=== PATIENT | female | born 1975 | race Caucasian/White ===

== ENCOUNTER → 2016-12-08 | Outpatient (CLI) | payer OTHER | LOC: FIMAGING 12:55 | PROVIDERS: ATTEND Obstetrics & Gynecology | DX: O09.521 Supervision of elderly multigravida, first trimester (principal); O09.811 Supervision of pregnancy resulting from assisted reproductive technology, first trimester; O20.8 Other hemorrhage in early pregnancy; Z3A.12 12 weeks gestation of pregnancy ==

== ENCOUNTER → 2017-01-29 | Outpatient (CLI) | payer OTHER | LOC: FIMAGING 12:01 | PROVIDERS: ATTEND Obstetrics & Gynecology | DX: O09.522 Supervision of elderly multigravida, second trimester (principal); O09.812 Supervision of pregnancy resulting from assisted reproductive technology, second trimester; Z3A.19 19 weeks gestation of pregnancy ==

== ENCOUNTER 2017-02-16 12:45 | Observation (INO) | payer OTHER ==
--- NOTE | 2017-02-16 14:55 | GHP ---
[f rep st] HISTORY AND PHYSICAL DATE OF ADMISSION: 02/16/2017 ADMISSION DIAGNOSIS: Intrauterine at 22-1/7 weeks gestation and cramping. HISTORY OF PRESENT ILLNESS: The patient is a 41-year-old, 2, para 0-1-0-0, who is at 22-1/7 weeks gestation. She has been receiving care at the [facility]. 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 This has been uncomplicat ed. The patient is anxious with this due to the history of her previous outcome. She stat ed last night she began having short stabbing pains that lasted 2 seconds in her abdomen every 5 annmarie hardy. She hydrated well, and these went away until the morning, where she started having pain every 2 minutes that lasted approximately 2 seconds. She states there is positive movement. She manolo es any vaginal bleeding. She denies any loss of fluid. She denies any back pain. She denies any he adache, changes in vision, nausea or vomiting. Speculum exam was performed, which showed the cervix was visually long and closed. An Affirm culture was collected. A sterile vaginal exam was performed , and her cervix was long, closed and thick. A urine culture and urinalysis were sent. PHYSICAL EXAMINATION: VITAL SIGNS: Stable. GENERAL APPEARANCE: Anxious, but alert and oriented x3 . PSYCHIATRIC: She has appropriate affect, and as previously stated, is anxious. MUSCULOSKELETAL: Grossly intact. NEUROLOGIC: Grossly intact. NECK: Mobile and supple. HEART: Rate is regular, r egular. LUNGS: Clear to auscultation bilaterally. ABDOMEN: Gravid, nondistended, nontender. EXTR EMITIES: No calf tenderness or edema. PELVIC: Cervix is long, closed and high. The infant's heart tracing is appropriate for gestational age, and she is potentially having mild yovani rine irritability. We will send down the Affirm and the urine culture. I had a long discussion with the patient about labor versus her anxiety over her previous loss and normal body changes in . The patient is very reassured and relieved that her cervix is long and closed and would like to go home now. ASSESSMENT AND PLAN: A 41-year-old, 2, para 0-1-0-0, who is 22-1/7 weeks gestation, receivin g care at the [facility]. We sent the urine culture and the Affirm culture. P reterm precautions were reviewed extensively with the patient. It was recommended that the patient d rink 3 L of water a day and follow up with us if any persistent pain happens or contractions increase in frequency and intensity. Patient's questions were answered, and patient would like to go home at this time. /[id number]/MODL
== END 2017-02-16 19:54 | disposition home or self-care (01) ==
LOC: FLD 12:45
PROVIDERS: ADMIT Advanced Practice Midwife; ATTEND Advanced Practice Midwife
DX: O09.522 Supervision of elderly multigravida, second trimester (principal); Z3A.22 22 weeks gestation of pregnancy; O26.892 Other specified pregnancy related conditions, second trimester; R10.9 Unspecified abdominal pain
CPT/HCPCS: G0378 ×2

== ENCOUNTER → 2017-02-24 | Outpatient (CLI) | payer OTHER | LOC: FIMAGING 09:18 | PROVIDERS: ATTEND Advanced Practice Midwife | DX: O09.522 Supervision of elderly multigravida, second trimester (principal); O09.812 Supervision of pregnancy resulting from assisted reproductive technology, second trimester; Z3A.23 23 weeks gestation of pregnancy ==

== ENCOUNTER → 2017-04-21 | Outpatient (CLI) | payer OTHER | LOC: FIMAGING 14:06 | PROVIDERS: ATTEND Advanced Practice Midwife | DX: O09.513 Supervision of elderly primigravida, third trimester (principal); O09.813 Supervision of pregnancy resulting from assisted reproductive technology, third trimester; Z3A.31 31 weeks gestation of pregnancy ==

== ENCOUNTER 2017-05-27 20:02 | Inpatient (IN) | payer OTHER ==
[2017-05-27] MEDS ORDERED: EPSOM SALT 454 GM TP PRN (20:30)
[2017-05-27] MEDS ORDERED: OLIVE OIL 118 ML BTL MISC PRN (20:30)
[2017-05-27] MEDS ORDERED: MISOPROSTOL 200 MCG TAB PR PRN (20:30)
[2017-05-27] MEDS ORDERED: TERBUTALINE SULFATE 1 MG/ML VIAL IV PRN (20:30)
[2017-05-27] MEDS ORDERED: LR 1,000 ML IV PRN (20:30)
[2017-05-27 20:41] LABS: PLATELET COUNT 216 10^3/uL (150-400)
[2017-05-27] MEDS ORDERED: BETAMETHASONE IM SYRINGE IM ONE (21:28)
--- NOTE | 2017-05-27 21:52 | CPEKG ---
Heart Rate: 62 RR Interval: 968 P-R Interval: 148 QRSD Interval: 78 QT Interval: 408 QTC Interval: 415 P [place]: 45 QRS [place]: 87 T Wave [place]: 47 EKG Severity - NORMAL ECG - EKG Impression: SINUS RHYTHM Electronically Signed By: Narendra Huang 28-May-2017 07:24:24
[2017-05-27 22:13] LABS: PLATELET COUNT 196 10^3/uL (150-400)
--- NOTE | 2017-05-27 23:31 | OBPROG ---
Labor Progress Note Assessment/Plan: Assessment: IUP at 36w1d with vaginal bleeding - early labor, near syncopal event at home - vaginal bleeding - heavy bloody show BOWI, GBS neg carrier for Lesch Nylan syndrome - baby with 50% chance of carrier status. torticolis, elev uric acid Plan: Pt will try to rest, requests tub bath 05/27/17 23:27 Subjective/Intrapartum Course: 05/27/17 23:30 Pt doing ok - states ctxns mild. anxious about bleeding Objective: 05/27/17 22:00 05/27/17 22:00 Patient ABO/Rh A POSITIVE 05/27/17 20:40 Uric Acid 7.5 mg/dL (2.5-6.8) H 05/27/17 20:30 Total Bilirubin 0.7 mg/dL (0.1-1.4) 05/27/17 22:00 Conjugated Bilirubin 0.2 mg/dL (0.0-0.5) 05/27/17 20:30 Unconjugated Bilirubin 0.6 mg/dL (0.0-1.1) 05/27/17 20:30 AST 35 IU/L (14-46) 05/27/17 22:00 ALT 40 IU/L (9-52) 05/27/17 22:00 Lactate Dehydrogenase 511 IU/L (313-618) 05/27/17 20:30 - SVE Dilation (cm): 4 Effacement (%): 80 Station: -1 Membranes: Intact - Contraction Pattern Assessment Current Contraction Pattern: Regular (q 2-3 min) - FHR Assessment Blount FHR (bpm): 120 FHR Pattern Variability: Moderate FHR Category: 1 Oxytocin Orders Assessment - Pre-Induction/Augmentation Assessment Gestational Age: 36 week(s) and 3 day(s) ICD10 Worksheet Patient Problems: Problems Problem Status Onset Vaginal bleeding Acute - ICD10 Problem Qualifiers (1) Vaginal bleeding
--- NOTE | 2017-05-28 00:06 | GHP ---
[f rep st] HISTORY AND PHYSICAL DATE OF ADMISSION: 05/27/2017 HISTORY OF PRESENT ILLNESS: The patient is a 42-year-old G3, P0-1-1-0, at 36 weeks and 3 days, with an estimated due date of 06/21/2017, who presents by ambulance with acute onset of vaginal bleeding a fter near syncopal events at home. The patient reports approximately 45 minutes prior to arrival she was sitting at her dinner table having dinner and felt acute onset of nausea and lightheadedness, an d felt acute onset of bleeding. The patient felt she passed a couple of large blood clots and this w as confirmed by the ambulance staff when they picked her up. The patient's clothing was saturated wi th blood upon arrival. The patient felt she was seeing stars and about to pass out. She had hydrate d approximately 2 to 2.5 L of water throughout the day. Patient was not able to assess if she was ray ving movement. Did not feel that she had rupture of membranes, but was continuously having a l ittle bit of leakage that she felt was blood. CARE: The patient has been followed recently by [facility] after transfer from [facility] earlier in . The patient had put the call into the [facility] er and talked to Morris who recommended calling the ambulance and presenting to Labor and Delivery. The patient's has been under increased surveillance due to her advanced maternal age, and t he fact that the was conception through IVF. The patient had an echo approximately 22 week s, which showed normal cardiac findings. The patient also had a 3rd trimester ultrasound with matern al specialist for evaluation of growth due to advanced age. Estimated weight was the 27t h percentile at 30+ weeks. There was a posterior placenta with no evidence of previa and good fluid on that ultrasound. The patient was initiating twice weekly NSTs and just had her first 1 earlier to day, which was a category 1 tracing. 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 The couple had pre-i mplantation genetic testing for aneuploidy, however, chose to implant a female for elimination of ris k of an affected child. The patient did not do specific testing for Lesch-Nyhan syndrome due to the expense. LABS: Include maternal blood type A positive with negative antibody screen. RPR nonreactiv e. HIV nonreactive. Hepatitis B surface antigen nonreactive. Rubella immune. Hepatitis C nonreact lj. Gonorrhea and chlamydia negative. TSH testing at the end of April was normal. Cystic fibros is, SMA, fragile X all negative. 1-hour Glucola was normal. Hematocrit levels have been normal in t he . GBS culture was negative. 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 The has been tested and is negative. History of torticollis. Michael's thyroiditis. PAST SURGICAL HISTORY: Negative. PAST OBSTETRIC HISTORY: The patient has had a first-trimester termination of . The patient also had an elective termination of at 23 weeks' gestation after her son was identified to have Lesch-Nyhan syndrome and felt to be incompatible with survival. This was in January 2014. CURRENT MEDICATIONS: vitamins, Synthroid 100 mcg a day, various supplements. Klonopin 0.5 mg tablet, taking a quarter of a tablet 3 times a day. ALLERGIES: Bactrim, sulfa. PHYSICAL EXAMINATION: GENERAL: Upon admission, the patient is a petite female in no physical distre ss upon admission, but very anxious due to the vaginal bleeding and tearful when hearing the he art tones. The patient's initial blood pressures were 140s over 90s. However, with repeat as the pa tient's anxiety is slowly decreased, is now more typically 130s over 70s. Patient is afebrile. See nursing documentation for full details. heart tone monitoring shows category 1 tracing with ba jacquieine in the 120s with good variability and accelerations. No decelerations noted. Contractions ray ve been occurring every 2-4 minutes with increasing intensity. Vaginal exam showed the cervix 3-4 cm dilated, 80% effaced, at -1 station. Bag of water was intact. Vertex presentation. EXTREMITIES: Nontender, no edema. DIAGNOSTIC STUDIES: A bedside ultrasound was performed. Vertex presentation. Good pockets of amnio tic fluid in the right upper quadrant. Placenta appears to be low and anterior but not previa. No o bvious signs of abruption. EKG testing was normal sinus rhythm. Initial lab testing was performed. Initial hematocrit 36%, platelets 196,000. PIH labs were perform ed. Sodium is low at 129, BUN and creatinine are normal. Liver function tests are normal except uri c acid 7.5. Due to these unexpected abnormal values, labs were repeated approximately an hour later. Repeat on the sodium was 132. ASSESSMENT: Intrauterine at 36 weeks and 3 days, acute onset of vaginal bleeding which neva ears consistent with heavy bloody show with early labor. No obvious sign of abruption, and the patie nt is having contractions with increasing intensity and cervical change. Over time, evaluation on [place] and Delivery, the bleeding has decreased dramatically. 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 Patient is aware of 50% potential risk of the baby being a carrier for the same disorder. History of Michael' s, stable on levothyroxine. PLAN: We will continue to watch the bleeding carefully and will allow continued labor trial as long as the baby stays in category 1. JOB ANALYST will be aware of the genetic issues. Betamethasone was given t o the patient for lung maturity. /[id number]/MODL
[2017-05-28] MEDS ORDERED: AMMONIA AROMATIC 1 EACH AMP IH ONE (04:08)
[2017-05-28] MEDS ORDERED: LIDOCAINE 1% 300 MG/30 ML SDV ONE (04:08)
[2017-05-28] MEDS ORDERED: TERBUTALINE SULFATE 1 MG/ML VIAL ONE (04:08)
[2017-05-28] MEDS ORDERED: OLIVE OIL 118 ML BTL ONE (04:08)
[2017-05-28] MEDS ORDERED: OXYTOCIN 10 UNIT/ML VIAL ONE (04:09)
[2017-05-28] MEDS ORDERED: BETAMETHASONE IM SYRINGE IM ONE (09:02)
--- NOTE | 2017-05-28 13:55 | SOAPPROG ---
SOAP Progress Note Assessment/Plan: Assessment: [id number] with IUP@36-4wks Vaginal bleeding threatened PTL GBS Negative cat 1 FHR tracing Plan: expectant management steroids given monitor closely cont EFM 05/28/17 17:08 Subjective: Pt doing well, she does report having minimal bleeding. denies any clots. She is having contractions that she is reporting 4/10. She is ambulating with no problems. She reports +FM. Denies any LOF. Objective: Laboratory Results 05/27/17 22:00 05/27/17 22:00 SVE 5/60/-2, BBOW - Pending Discharge Pending Discharge Within 24 Hours: No Pending Discharge Within 48 Hours: No Physical Exam - Physical Exam General Appearance: WD/WN, alert, no apparent distress Neck: supple Abdomen: non-tender, soft, other (gravid) Extremities: non-tender Neuro/Psych: alert, normal mood/affect, oriented x 3 ICD10 Worksheet Patient Problems: Problems Problem Status Onset Threatened labor Acute Vaginal bleeding Acute - ICD10 Problem Qualifiers (1) Threatened labor
[2017-05-28] MEDS: clonazePAM 0.5 MG TAB PO SCH ×4 (15:15→20:57)
[2017-05-28] MEDS: LEVOTHYROXINE 100 MCG TAB PO SCH (16:29)
--- NOTE | 2017-05-28 19:30 | SOAPPROG ---
SOAP Progress Note Assessment/Plan: Assessment: [id number] with IUP@36-4wks Vaginal bleeding threatened PTL GBS Negative cat 1 FHR tracing Plan: expectant management monitor closely cont EFM Discussed with NATALIE Keating- will not augment unless indicated by status or increasing VB 05/28/17 17:08 05/28/17 19:28 Subjective: Patient doing well, she denies any pain at this time. She does report irregular contractions, approximately every 10-20 minutes. She denies any active bleeding at this time. She reports positive movement. Objective: Laboratory Results 05/27/17 22:00 05/27/17 22:00 Physical Exam - Physical Exam General Appearance: WD/WN, alert, no apparent distress Neck: supple Abdomen: non-tender, soft Pelvic Exam: other (SVE: 6/70/-2, BBOW; old blood/bloody show noted) Skin: normal color, warm/dry Extremities: non-tender, normal inspection Neuro/Psych: alert, normal mood/affect, oriented x 3 ICD10 Worksheet Patient Problems: Problems Problem Status Onset Threatened labor Acute Vaginal bleeding Acute - ICD10 Problem Qualifiers (1) Threatened labor
[2017-05-28] MEDS ORDERED: clonazePAM 0.5 MG TAB PO SCH ×2 (20:45)
[2017-05-29] MEDS: LEVOTHYROXINE 100 MCG TAB PO SCH (06:12)
[2017-05-29] MEDS: clonazePAM 0.5 MG TAB PO SCH ×3 (08:27→19:19)
--- NOTE | 2017-05-29 09:01 | OBPROG ---
Labor Progress Note Assessment/Plan: 42yo today at 36w5d - now HD3, admitted at 36w3d with vaginal bleeding - thought to be 2/2 early cervical change vs marginal abruption. * Original US negative for abruption. * Bleeding has since tapered off and resolved - none overnight and this AM. * 2nd BMZ given at 10am yesterday, so through tx window this AM. * Sporadic ctx's overnight, but not very painful per pt, none this AM. * SCE per PS yesterday evening 6cm/70%. * PS discussed case with MFM and recommendation is to observe until 37w0d ( Thursday) and induce at that point - obviously earlier if indicated. * Discussed plan for IOL w pt and and they'd prefer Pitocin followed by AROM. * GBS negative. * TID monitoring for now, if bleeding returns or ctx's - will need CEFM. * Rh positive, Rubella immune. * Hashiomoto's: Levo 100mcg, continuing that dose. Subjective/Intrapartum Course: Had run of ctx's around 0300 this AM that were not particularly painful, they have since resolved. No bleeding at all. Feeling well otherwise. Objective: 05/27/17 22:00 05/27/17 22:00 Patient ABO/Rh A POSITIVE 05/27/17 20:40 Uric Acid 7.5 mg/dL (2.5-6.8) H 05/27/17 20:30 Total Bilirubin 0.7 mg/dL (0.1-1.4) 05/27/17 22:00 Conjugated Bilirubin 0.2 mg/dL (0.0-0.5) 05/27/17 20:30 Unconjugated Bilirubin 0.6 mg/dL (0.0-1.1) 05/27/17 20:30 AST 35 IU/L (14-46) 05/27/17 22:00 ALT 40 IU/L (9-52) 05/27/17 22:00 Lactate Dehydrogenase 511 IU/L (313-618) 05/27/17 20:30 - SVE Membranes: Intact - Contraction Pattern Assessment Current Contraction Pattern: Other (Specify) (Rare ctx's, irritable) - FHR Assessment Blount FHR (bpm): 135 FHR Pattern Variability: Moderate FHR Category: 1 - AP Antepartum Course: BMZ2 given 10am yesterday (that dose was given 12 hrs following first dose due to concern for progression of labor) - Physical Exam General Appearance: alert, no apparent distress Oxytocin Orders Assessment - Pre-Induction/Augmentation Assessment Gestational Age: 36 week(s) and 3 day(s) - Heart Rate Pattern Blount FHR Baseline (bpm): 135 FHR Category: 1 FHR Pattern Variability: Moderate FHR Accelerations: Present ICD10 Worksheet Patient Problems: Problems Problem Status Onset Threatened labor Acute Vaginal bleeding Acute
[2017-05-30] MEDS: LEVOTHYROXINE 100 MCG TAB PO SCH (05:53)
[2017-05-30] MEDS: clonazePAM 0.5 MG TAB PO SCH ×3 (08:18→20:18)
[2017-05-30] MEDS ORDERED: LACTULOSE 20 GM/30 ML UDCUP PO PRN (08:40)
[2017-05-30] MEDS ORDERED: BISACODYL 10 MG SUPP PR PRN (08:40)
[2017-05-30] MEDS ORDERED: POLYETHYLENE GLYCOL 3350 17 GM PKT PO PRN (08:40)
[2017-05-30] MEDS ORDERED: MAGNESIUM HYDROXIDE 30 ML UDCUP PO PRN (08:40)
--- NOTE | 2017-05-30 09:42 | OBPROG ---
Labor Progress Note Assessment/Plan: Assessment: IUP at 36w6d with vaginal bleeding on admit on 05/27 with early labor, near syncopal event at home - HD 4 vaginal bleeding - suspected to be heavy bloody show with cx 3-4 on admit --no progress of labor and minimal bleeding since 05/27 s/p BMZ course - per MFM obs until 37 wks, then induce BOWI, GBS neg carrier for Lesch Nyhan syndrome - baby with 50% chance of carrier status. torticolis, elev uric acid Plan: Pt comfortable - intermittent monitoring, scant bleeding. feels constipated - will use meds - last BM 05/2905/27/17 23:27 05/30/17 09:37 Subjective/Intrapartum Course: Had run of ctx's around 0300 this AM that were not particularly painful, they have since resolved. No bleeding at all. Feeling well otherwise. 05/30/17 09:42 Pt doing fine - felt increase in ctxns this am, but have settled down. GFM. BOWI. Feels backed up - wants to use something for BM Objective: 05/27/17 22:00 05/27/17 22:00 Patient ABO/Rh A POSITIVE 05/27/17 20:40 Uric Acid 7.5 mg/dL (2.5-6.8) H 05/27/17 20:30 Total Bilirubin 0.7 mg/dL (0.1-1.4) 05/27/17 22:00 Conjugated Bilirubin 0.2 mg/dL (0.0-0.5) 05/27/17 20:30 Unconjugated Bilirubin 0.6 mg/dL (0.0-1.1) 05/27/17 20:30 AST 35 IU/L (14-46) 05/27/17 22:00 ALT 40 IU/L (9-52) 05/27/17 22:00 Lactate Dehydrogenase 511 IU/L (313-618) 05/27/17 20:30 - SVE Membranes: Intact - Contraction Pattern Assessment Current Contraction Pattern: Irregular (very infreq), Other (Specify) (Rare ctx' s, irritable) - FHR Assessment Blount FHR (bpm): 140 FHR Pattern Variability: Moderate FHR Category: 1 - AP Antepartum Course: BMZ2 given 10am yesterday (that dose was given 12 hrs following first dose due to concern for progression of labor) Oxytocin Orders Assessment - Pre-Induction/Augmentation Assessment Gestational Age: 36 week(s) and 3 day(s) ICD10 Worksheet Patient Problems: Problems Problem Status Onset Threatened labor Acute Vaginal bleeding Acute - ICD10 Problem Qualifiers (1) Vaginal bleeding
[2017-05-30] MEDS ORDERED: DOCUSATE PO PRN (11:08)
[2017-05-30] MEDS ORDERED: fentaNYL 2MCG/ML/BUP 0.1% RTU 100 ML EP SCH (12:00)
[2017-05-30] MEDS ORDERED: LR 500 ML IV PRN (21:31)
[2017-05-31] MEDS: LEVOTHYROXINE 100 MCG TAB PO SCH (06:17)
[2017-05-31] MEDS: SENNOSIDES/DOCUSATE SODIUM TAB PO SCH ×4 (07:09→21:32)
[2017-05-31] MEDS: clonazePAM 0.5 MG TAB PO SCH ×3 (08:39→19:26)
[2017-05-31] MEDS: OXYTOCIN 30 UNIT in NS 500 ML IV SCH (09:55)
--- NOTE | 2017-05-31 11:44 | OBPROG ---
Labor Progress Note Assessment/Plan: 42yo today at 36w5d - now HD3, admitted at 36w3d with vaginal bleeding - thought to be 2/2 early cervical change vs marginal abruption. * Original US negative for abruption. * Bleeding has since tapered off and resolved - none overnight and this AM. * 2nd BMZ given at 10am yesterday, so through tx window this AM. * Sporadic ctx's overnight, but not very painful per pt, none this AM. * SCE per PS yesterday evening 6cm/70%. * PS discussed case with MFM and recommendation is to observe until 37w0d ( Thursday) and induce at that point - obviously earlier if indicated. * Discussed plan for IOL w pt and and they'd prefer Pitocin followed by AROM. * GBS negative. * TID monitoring for now, if bleeding returns or ctx's - will need CEFM. * Rh positive, Rubella immune. * Hashiomoto's: Levo 100mcg, continuing that dose. 05/31/17 17:09 Now 37w0d - Pitocin started this AM for IOL. - Continue Pitocin, pt would prefer no AROM. - GBS negative. - CEFM - Category I tracing thus far. - Confirmed vertex presentation by US at the bedside. Subjective/Intrapartum Course: Had run of ctx's around 0300 this AM that were not particularly painful, they have since resolved. No bleeding at all. Feeling well otherwise. 05/30/17 09:42 Pt doing fine - felt increase in ctxns this am, but have settled down. GFM. BOWI. Feels backed up - wants to use something for BM 05/31/17 17:10 Saw pt shortly after Pit was started this AM - not really feeling much for ctx' s yet. Doing well. Just ate some breakfast. Objective: 05/27/17 22:00 05/27/17 22:00 Patient ABO/Rh A POSITIVE 05/27/17 20:40 Uric Acid 7.5 mg/dL (2.5-6.8) H 05/27/17 20:30 Total Bilirubin 0.7 mg/dL (0.1-1.4) 05/27/17 22:00 Conjugated Bilirubin 0.2 mg/dL (0.0-0.5) 05/27/17 20:30 Unconjugated Bilirubin 0.6 mg/dL (0.0-1.1) 05/27/17 20:30 AST 35 IU/L (14-46) 05/27/17 22:00 ALT 40 IU/L (9-52) 05/27/17 22:00 Lactate Dehydrogenase 511 IU/L (313-618) 05/27/17 20:30 - SVE Membranes: Intact - Contraction Pattern Assessment Current Contraction Pattern: Irregular (very infreq), Other (Specify) (Rare ctx' s, irritable) - FHR Assessment [place] FHR (bpm): 135 FHR Pattern Variability: Moderate FHR Category: 1 - AP Antepartum Course: BMZ2 given 10am yesterday (that dose was given 12 hrs following first dose due to concern for progression of labor) Oxytocin Orders Assessment - Pre-Induction/Augmentation Assessment Gestational Age: 36 week(s) and 3 day(s) ICD10 Worksheet Patient Problems: Problems Problem Status Onset Threatened labor Acute Vaginal bleeding Acute
[2017-06-01] MEDS: OXYTOCIN 30 UNIT in NS 500 ML IV SCH (05:20)
[2017-06-01] MEDS: LEVOTHYROXINE 100 MCG TAB PO SCH (06:03)
[2017-06-01] MEDS: clonazePAM 0.5 MG TAB PO SCH ×3 (08:08→19:57)
--- NOTE | 2017-06-01 09:19 | OBPROG ---
Labor Progress Note Assessment/Plan: Assessment: IUP at 37 1/7 weeks IOL for placenta abruption ARom old blood Vertex confirmed by ultrasound Plan: 06/01/17 09:13 ARom Continue Pitocin Anticipate vaginal delivery Subjective/Intrapartum Course: Had run of ctx's around 0300 this AM that were not particularly painful, they have since resolved. No bleeding at all. Feeling well otherwise. 05/30/17 09:42 Pt doing fine - felt increase in ctxns this am, but have settled down. GFM. BOWI. Feels backed up - wants to use something for BM 05/31/17 17:10 Saw pt shortly after Pit was started this AM - not really feeling much for ctx' s yet. Doing well. Just ate some breakfast. 06/01/17 09:19 Patient doing well. Had long discussion with patient and about Induction and recommendation for AROM. All questions answered and agreed to ARom Objective: 05/27/17 22:00 05/27/17 22:00 Patient ABO/Rh A POSITIVE 06/01/17 05:55 Uric Acid 7.5 mg/dL (2.5-6.8) H 05/27/17 20:30 Total Bilirubin 0.7 mg/dL (0.1-1.4) 05/27/17 22:00 Conjugated Bilirubin 0.2 mg/dL (0.0-0.5) 05/27/17 20:30 Unconjugated Bilirubin 0.6 mg/dL (0.0-1.1) 05/27/17 20:30 AST 35 IU/L (14-46) 05/27/17 22:00 ALT 40 IU/L (9-52) 05/27/17 22:00 Lactate Dehydrogenase 511 IU/L (313-618) 05/27/17 20:30 - SVE Dilation (cm): 4, 5 Effacement (%): 90 Station: 0 Membranes: Intact Amniotic Fluid Color: Bloody - Contraction Pattern Assessment Current Contraction Pattern: Irregular (very infreq), Other (Specify) (Rare ctx' s, irritable) - FHR Assessment Blount FHR (bpm): 135 FHR Pattern Variability: Moderate - AP Antepartum Course: BMZ2 given 10am yesterday (that dose was given 12 hrs following first dose due to concern for progression of labor) Oxytocin Orders Assessment - Pre-Induction/Augmentation Assessment Gestational Age: 36 week(s) and 3 day(s) ICD10 Worksheet Patient Problems: Problems Problem Status Onset Threatened labor Acute Vaginal bleeding Acute
--- NOTE | 2017-06-01 11:19 | OBPROG ---
Labor Progress Note Assessment/Plan: Assessment: IUP at 37 1/7 weeks IOL for placenta abruption ARom old blood Vertex confirmed by ultrasound Plan: 06/01/17 09:13 ARom Continue Pitocin Anticipate vaginal delivery Subjective/Intrapartum Course: Had run of ctx's around 0300 this AM that were not particularly painful, they have since resolved. No bleeding at all. Feeling well otherwise. 05/30/17 09:42 Pt doing fine - felt increase in ctxns this am, but have settled down. GFM. BOWI. Feels backed up - wants to use something for BM 05/31/17 17:10 Saw pt shortly after Pit was started this AM - not really feeling much for ctx' s yet. Doing well. Just ate some breakfast. 06/01/17 09:19 Patient doing well. Had long discussion with patient and about Induction and recommendation for AROM. All questions answered and agreed to ARom 06/01/17 11:18 Patient feeling pressure Objective: 05/27/17 22:00 05/27/17 22:00 Patient ABO/Rh A POSITIVE 06/01/17 05:55 Uric Acid 7.5 mg/dL (2.5-6.8) H 05/27/17 20:30 Total Bilirubin 0.7 mg/dL (0.1-1.4) 05/27/17 22:00 Conjugated Bilirubin 0.2 mg/dL (0.0-0.5) 05/27/17 20:30 Unconjugated Bilirubin 0.6 mg/dL (0.0-1.1) 05/27/17 20:30 AST 35 IU/L (14-46) 05/27/17 22:00 ALT 40 IU/L (9-52) 05/27/17 22:00 Lactate Dehydrogenase 511 IU/L (313-618) 05/27/17 20:30 - SVE Dilation (cm): 8 Effacement (%): 100 Station: 0 Membranes: AROM Amniotic Fluid Color: Bloody - Contraction Pattern Assessment Current Contraction Pattern: Regular, Irregular (very infreq), Other (Specify) ( Rare ctx's, irritable) - FHR Assessment Blount FHR (bpm): 135 FHR Pattern Variability: Moderate FHR Category: 1 - AP Antepartum Course: BMZ2 given 10am yesterday (that dose was given 12 hrs following first dose due to concern for progression of labor) Oxytocin Orders Assessment - Pre-Induction/Augmentation Assessment Gestational Age: 36 week(s) and 3 day(s) ICD10 Worksheet Patient Problems: Problems Problem Status Onset Threatened labor Acute Vaginal bleeding Acute
--- NOTE | 2017-06-01 12:14 | OBPROG ---
Labor Progress Note Assessment/Plan: Assessment: IUP at 37 1/7 weeks IOL for placenta abruption ARom old blood Vertex confirmed by ultrasound Plan: 06/01/17 09:13 ARom Continue Pitocin Anticipate vaginal delivery Subjective/Intrapartum Course: Had run of ctx's around 0300 this AM that were not particularly painful, they have since resolved. No bleeding at all. Feeling well otherwise. 05/30/17 09:42 Pt doing fine - felt increase in ctxns this am, but have settled down. GFM. BOWI. Feels backed up - wants to use something for BM 05/31/17 17:10 Saw pt shortly after Pit was started this AM - not really feeling much for ctx' s yet. Doing well. Just ate some breakfast. 06/01/17 09:19 Patient doing well. Had long discussion with patient and about Induction and recommendation for AROM. All questions answered and agreed to ARom 06/01/17 11:18 Patient feeling pressure 06/01/17 12:13 Feeling pressure Objective: 05/27/17 22:00 05/27/17 22:00 Patient ABO/Rh A POSITIVE 06/01/17 05:55 Uric Acid 7.5 mg/dL (2.5-6.8) H 05/27/17 20:30 Total Bilirubin 0.7 mg/dL (0.1-1.4) 05/27/17 22:00 Conjugated Bilirubin 0.2 mg/dL (0.0-0.5) 05/27/17 20:30 Unconjugated Bilirubin 0.6 mg/dL (0.0-1.1) 05/27/17 20:30 AST 35 IU/L (14-46) 05/27/17 22:00 ALT 40 IU/L (9-52) 05/27/17 22:00 Lactate Dehydrogenase 511 IU/L (313-618) 05/27/17 20:30 - SVE Dilation (cm): 9 Effacement (%): 100 Station: +1 Membranes: AROM Amniotic Fluid Color: Bloody - Contraction Pattern Assessment Current Contraction Pattern: Regular, Irregular (very infreq), Other (Specify) ( Rare ctx's, irritable) - FHR Assessment [place] FHR (bpm): 135 FHR Pattern Variability: Moderate FHR Category: 1 - AP Antepartum Course: BMZ2 given 10am yesterday (that dose was given 12 hrs following first dose due to concern for progression of labor) Oxytocin Orders Assessment - Pre-Induction/Augmentation Assessment Gestational Age: 36 week(s) and 3 day(s) ICD10 Worksheet Patient Problems: Problems Problem Status Onset Threatened labor Acute Vaginal bleeding Acute
--- NOTE | 2017-06-01 14:42 | OBDEL ---
Info Type: Vaginal Presentation at Delivery: Vertex L&D Analgesia/Anesthesia Type: None GBS+: Yes Intrapartum Medications: Generic Name Dose Route Start Last Admin Trade Name Dione PRN Reason Stop Dose Admin Clonazepam 0.125 mg 05/28/17 20:45 06/01/17 08:08 Klonopin PO 11/24/17 20:44 0.125 mg TID@0800,1400,1900 MARINO Administration Oxytocin 30 unit/ Sodium 503 mls @ 0 mls/hr 05/30/17 21:45 06/01/17 05:20 Chloride IV 11/26/17 21:44 503 mls CONT MARINO Administration Protocol Per Protocol Levothyroxine Sodium 100 mcg 05/28/17 07:30 06/01/17 06:03 Synthroid PO 11/24/17 07:29 100 mcg DAILY06 MARINO Administration Miscellaneous Medication 1 - 2 ea 05/30/17 11:08 05/31/17 21:28 Non-Formulary PO 11/26/17 11:07 1 cap BID PRN Administration CONSTIPATION Senna/Docusate Sodium 1 - 2 tab 05/30/17 09:00 05/31/17 21:32 Senokot-S PO 11/26/17 08:59 Not Given BID MARINO Protocol Discontinued Medications Generic Name Dose Route Start Last Admin Trade Name Dione PRN Reason Stop Dose Admin Betamethasone Acet/Betameth SodPhos 12 mg 05/27/17 21:28 05/27/17 22:10 Celestone Im Syringe IM 05/27/17 21:29 12 mg ONCE ONE Administration Betamethasone Acet/Betameth SodPhos 12 mg 05/28/17 09:02 05/28/17 10:39 Celestone Im Syringe IM 05/28/17 09:03 12 mg ONCE ONE Administration Clonazepam 0.125 mg 05/28/17 00:00 05/28/17 16:27 Klonopin PO 11/24/17 00:00 0.125 mg TID MARINO Administration Lactated Ringer's 1,000 mls @ 0 mls/hr 05/27/17 20:30 05/27/17 22:17 Lr IV 05/28/17 20:29 1,000 mls PRN PRN Administration SEE PROTOCOL CONDITIONS Protocol Per Protocol - Hospital Course Intrapartum: Had run of ctx's around 0300 this AM that were not particularly painful, they have since resolved. No bleeding at all. Feeling well otherwise. 05/30/17 09:42 Pt doing fine - felt increase in ctxns this am, but have settled down. GFM. BOWI. Feels backed up - wants to use something for BM 05/31/17 17:10 Saw pt shortly after Pit was started this AM - not really feeling much for ctx' s yet. Doing well. Just ate some breakfast. 06/01/17 09:19 Patient doing well. Had long discussion with patient and about Induction and recommendation for AROM. All questions answered and agreed to ARom 06/01/17 11:18 Patient feeling pressure 06/01/17 12:13 Feeling pressure 06/01/17 14:39 Patient agreed to ARom this morning. after 1-2 hours started to feel pressure and progressed to complete [id number]. Patient pushed for 40 minutes and had Indications for Delivery: Preeclampsia Mild Vaginal Delivery - Delivery Provider Delivery Physician/CNM: Aminta Dunaway - Labor and Delivery Onset of Contractions Date: 05/27/17 Onset of Contractions Time: 20:00 Onset of Contractions Type: Induced Rupture of Membranes Date: 06/01/17 Rupture of Membranes Time: 09:00 Rupture of Membranes Type: Artificial Amniotic Fluid Color: Bloody Dilation Complete Date: 06/01/17 Dilation Complete Time: 13:28 Placenta Delivery Date: 06/01/17 Placenta Delivery Time: 14:15 Total Hours of Labor: 114 Non-surgical Procedures: Amniotomy Laceration: 2nd Degree Repair: 2-0 Vaginal Sponge Count Correct: Yes Vaginal Needle Count Correct: Yes Vaginal Sweep Performed: Yes EBL: 500 Delivery Events: None Delivery Comment: Patient was induced for abruption placenta at 37 weeks and on Pitocin since Wednesday 05/31.Patient agreed to ARom this morning. after 1-2 hours started to feel pressure and progressed to complete [id number]. Patient pushed for 40 minutes and had over 2nd degree laceration. 250ml clot came out then placenta with total EBL 500 ml. laceration repaired with 2-0 vicryl. - Medications Labor Augmentation/Induction Methods Used: Pitocin Labor Augmentation/Induction Indication: Contraction Strength Inadequate, Other (Specify) (placenta abruption) Data ROMY: 06/21/17 Gestational Age: 37 week(s) and 1 day(s) [place] Delivery Date: 06/01/17 Delivery Time: 14:15 Sex of Infant: Female Score (1 Min): 8 Score (5 Min): 10 ICD10 Worksheet Patient Problems: Problems Problem Status Onset Placenta abruption, delivered, current hospitalization Acute Threatened labor Acute Vaginal bleeding Acute - ICD10 Problem Qualifiers (1) Placenta abruption, delivered, current hospitalization
[2017-06-01] MEDS ORDERED: DOCUSATE SODIUM 100 MG CAP PO PRN (14:46)
[2017-06-01] MEDS ORDERED: HYDROCODONE/APAP 5/325 TAB PO PRN (14:46)
[2017-06-01] MEDS ORDERED: SIMETHICONE 80 MG TAB CHEW PO PRN (14:46)
[2017-06-01] MEDS: IBUPROFEN 600 MG TAB PO PRN ×2 (14:47→20:14)
[2017-06-01] MEDS: OXYTOCIN 20 UNIT in LR 1,000 ML IV PRN ×2 (15:42→16:21)
[2017-06-01] MEDS ORDERED: HEMABATE 250 MCG/1 ML AMP IM ONE (15:58)
[2017-06-01] MEDS ORDERED: fentaNYL 100 MCG/2 ML INJ ONE ×2 (15:59→18:05)
--- NOTE | 2017-06-01 16:18 | OBPP ---
Progress Note Assessment/Plan: Assessment: Post hemorrhage retained placenta Plan: 06/01/17 09:13 ARom Continue Pitocin Anticipate vaginal delivery 06/01/17 16:14 retained placenta removed Labs ordered Ultrasound confirmed then endometrium Ferrous sulfate Ancef Subjective/ Course: 06/01/17 16:13 Called to room to evaluate for post hemorrhage. Patient feeling weak like wanting to pass out. 06/01/17 16:15 Patient given 75 mcg of fentanyl, total of 980 mL of clot with placental fragments removed manually (Placenta appeared intact after spontaneous delivery earlier) 1,000mg cytotec given per rectum. Ancef ordered and Iron will repeat labs in am. [facility] labs ordered now. Objective: 05/27/17 22:00 05/27/17 22:00 Patient ABO/Rh A POSITIVE 06/01/17 05:55 Uric Acid 7.5 mg/dL (2.5-6.8) H 05/27/17 20:30 Total Bilirubin 0.7 mg/dL (0.1-1.4) 05/27/17 22:00 Conjugated Bilirubin 0.2 mg/dL (0.0-0.5) 05/27/17 20:30 Unconjugated Bilirubin 0.6 mg/dL (0.0-1.1) 05/27/17 20:30 AST 35 IU/L (14-46) 05/27/17 22:00 ALT 40 IU/L (9-52) 05/27/17 22:00 Lactate Dehydrogenase 511 IU/L (313-618) 05/27/17 20:30 Uterine Position/Fundal Height: Umbilicus -2 Uterine Tone: Firm Physical Exam - Physical Exam Abdomen: normal bowel sounds, hypoactive bowel sounds, other (Pelvic clots and placenta removed from uterus. cytotec placed per rectum)
[2017-06-01] MEDS ORDERED: ceFAZolin 1 GM in NS 100 ML IV SCH (16:30)
[2017-06-01] MEDS ORDERED: ALBUMIN 5% 500 ML BOTTLE IV ONE (17:42)
[2017-06-01] MEDS ORDERED: PHENYLEPHRINE HCL 100 MCG/ML SYR ONE (17:43)
[2017-06-01] MEDS ORDERED: METHYLERGONOVINE MAL 0.2 MG/ML INJ ONE (17:56)
[2017-06-01] MEDS ORDERED: KETAMINE 200 MG/20 ML VIAL ONE (18:02)
[2017-06-01 18:16] LABS: INR 1.18 (0.83-1.16); PROTIME(PATIENT) 15.2 SEC (12.0-15.0)
--- NOTE | 2017-06-01 18:42 | CPEKG ---
Heart Rate: 72 RR Interval: 833 P-R Interval: 136 QRSD Interval: 70 QT Interval: 360 QTC Interval: 394 P [place]: 66 QRS [place]: 82 T Wave [place]: 58 EKG Severity - NORMAL ECG - EKG Impression: SINUS RHYTHM Electronically Signed By: Pato Armstrong 01-Jun-2017 20:36:16
--- NOTE | 2017-06-01 19:33 | SOAPPROG ---
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 will recheck [facility] labs at 23:00. 05/27/17 23:27 05/30/17 09:37 06/01/17 19:28 Subjective: Pt improved and currently . Pt had PPH and manual extraction on placental fragments approx 4:30 - given 1000 mcg cytotec, and pitocin. B/P dropped and near syncopal and I was called approx 5:45, after the fundal check produced another 500ml EBL. Due to hct of 19 recently checked, 2 u PRBCs had been ordered and pt rec'd. PT/PTT, FBG were reassuring. U/S revealed add'n clot/tissue in TANVI - pt given 100 mcg Fentanyl and sharp currettage done with Ash's currette. approx 500 ml with removal of tissue/clot. Fundus has remained firm - TANVI floppy - methergine given. Question on heart monitoring and full EKG done - normal sinus. IStat done and hct 28. Pt's vitals stable and now breast feeding. TOTAL EBL WITH DEL, PPH AND CURRENT is approx 3100ml, est IVF with cryst, blood , abx is 3600ml Objective: Laboratory Results 06/01/17 17:08 05/27/17 22:00 PT 15.2 SEC (12.0-15.0) H 06/01/17 17:50 INR 1.18 (0.83-1.16) H 06/01/17 17:50 ICD10 Worksheet Patient Problems: Problems Problem Status Onset Placenta abruption, delivered, current hospitalization Acute hemorrhage Acute (spontaneous vaginal delivery) Acute Status post dilation and curettage Acute Threatened labor Acute Vaginal bleeding Acute - ICD10 Problem Qualifiers (1) Vaginal bleeding
[2017-06-01] MEDS ORDERED: fentaNYL 100 MCG/2 ML INJ IVP ONE (20:00)
[2017-06-01] MEDS: FERROUS SULFATE 325 MG TAB PO SCH (20:00)
[2017-06-01] MEDS: SENNOSIDES/DOCUSATE SODIUM TAB PO SCH ×2 (20:00→22:41)
[2017-06-01 21:40] LABS: PLATELET COUNT 150 10^3/uL (150-400)
[2017-06-01 23:41] VITALS: RESP 16
[2017-06-02] MEDS: IBUPROFEN 600 MG TAB PO PRN ×3 (01:45→20:31)
[2017-06-02] MEDS: LEVOTHYROXINE 100 MCG TAB PO SCH (05:37)
[2017-06-02 06:08] LABS: PLATELET COUNT 148 10^3/uL (150-400)
--- NOTE | 2017-06-02 07:28 | OBPP ---
Progress Note Assessment/Plan: Assessment: s/p PPday #1 Post hemorrhage retained placenta s/p manual removal of placenta fragments and D&C last night received 2Units PRBC Plan: 06/01/17 09:13 ARom Continue Pitocin Anticipate vaginal delivery 06/01/17 16:14 retained placenta removed Labs ordered Ultrasound confirmed then endometrium Ferrous sulfate Ancef 06/02/17 07:27 06/02/17 08:33 continue current managment Subjective/ Course: 06/01/17 16:13 Called to room to evaluate for post hemorrhage. Patient feeling weak like wanting to pass out. 06/01/17 16:15 Patient given 75 mcg of fentanyl, total of 980 mL of clot with placental fragments removed manually (Placenta appeared intact after spontaneous delivery earlier) 1,000mg cytotec given per rectum. Ancef ordered and Iron will repeat labs in am. [facility] labs ordered now. 06/02/17 08:32 Patient still feels weak but better. Breast feeding and tolerating PO patient voiding. No nausea or vomiting min pain and not much bleeding Objective: 06/02/17 05:45 06/01/17 21:31 Patient ABO/Rh A POSITIVE 06/01/17 05:55 Uric Acid 8.2 mg/dL (2.5-6.8) H 06/01/17 21:31 Total Bilirubin 0.7 mg/dL (0.1-1.4) 05/27/17 22:00 Conjugated Bilirubin 0.2 mg/dL (0.0-0.5) 05/27/17 20:30 Unconjugated Bilirubin 0.6 mg/dL (0.0-1.1) 05/27/17 20:30 AST 42 IU/L (14-46) 06/01/17 21:31 ALT 31 IU/L (9-52) 06/01/17 21:31 Lactate Dehydrogenase 511 IU/L (313-618) 05/27/17 20:30 Temp Pulse Resp BP Pulse Ox 37.0 C 66 16 125/84 H 98 06/02/17 01:46 06/02/17 01:46 06/02/17 01:46 06/02/17 01:46 06/02/17 01:46 Uterine Position/Fundal Height: Umbilicus -2 Uterine Tone: Firm Physical Exam - Physical Exam EENT: normal ENT inspection Respiratory: chest non-tender, lungs clear Cardiac/Chest: normal peripheral pulses, regular rate, rhythm Abdomen: normal bowel sounds, hypoactive bowel sounds, non-tender Extremities: normal range of motion, non-tender Neuro/Psych: no motor/sensory deficits, alert, normal mood/affect, oriented x 3 , other (tired)
[2017-06-02] MEDS: FERROUS SULFATE 325 MG TAB PO SCH ×3 (09:15→20:32)
[2017-06-02] MEDS: SENNOSIDES/DOCUSATE SODIUM TAB PO SCH ×2 (09:23→20:32)
[2017-06-02] MEDS: clonazePAM 0.5 MG TAB PO SCH ×3 (10:24→20:33)
[2017-06-02 20:49] VITALS: O2SAT 99
[2017-06-03] MEDS: IBUPROFEN 600 MG TAB PO PRN ×2 (03:39→11:29)
[2017-06-03] MEDS: LEVOTHYROXINE 100 MCG TAB PO SCH (05:30)
--- NOTE | 2017-06-03 07:27 | OBPP ---
Progress Note Assessment/Plan: Assessment: s/p PPday #2 Post hemorrhage retained placenta s/p manual removal of placenta fragments and D&C 06/01 received 2Units PRBC Patient stable afebrile wants to go home Plan: 06/01/17 09:13 ARom Continue Pitocin Anticipate vaginal delivery 06/01/17 16:14 retained placenta removed Labs ordered Ultrasound confirmed then endometrium Ferrous sulfate Ancef 06/02/17 07:27 06/02/17 08:33 continue current managment 06/03/17 07:26 Discharge home today Ibuprofen/Iron Follow up in 4 and 6 weeks Subjective/ Course: 06/01/17 16:13 Called to room to evaluate for post hemorrhage. Patient feeling weak like wanting to pass out. 06/01/17 16:15 Patient given 75 mcg of fentanyl, total of 980 mL of clot with placental fragments removed manually (Placenta appeared intact after spontaneous delivery earlier) 1,000mg cytotec given per rectum. Ancef ordered and Iron will repeat labs in am. [facility] labs ordered now. 06/02/17 08:32 Patient still feels weak but better. Breast feeding and tolerating PO patient voiding. No nausea or vomiting min pain and not much bleeding Objective: 06/02/17 05:45 06/01/17 21:31 Patient ABO/Rh A POSITIVE 06/01/17 05:55 Uric Acid 8.2 mg/dL (2.5-6.8) H 06/01/17 21:31 Total Bilirubin 0.7 mg/dL (0.1-1.4) 05/27/17 22:00 Conjugated Bilirubin 0.2 mg/dL (0.0-0.5) 05/27/17 20:30 Unconjugated Bilirubin 0.6 mg/dL (0.0-1.1) 05/27/17 20:30 AST 42 IU/L (14-46) 06/01/17 21:31 ALT 31 IU/L (9-52) 06/01/17 21:31 Lactate Dehydrogenase 511 IU/L (313-618) 05/27/17 20:30 Temp Pulse Resp BP Pulse Ox 36.6 C 78 16 122/84 H 99 06/02/17 20:30 06/02/17 20:30 06/02/17 20:30 06/02/17 20:30 06/02/17 20:30 Uterine Position/Fundal Height: Umbilicus -2 Uterine Tone: Firm Physical Exam - Physical Exam Respiratory: chest non-tender, lungs clear, normal breath sounds Cardiac/Chest: normal peripheral pulses, regular rate, rhythm, edema Abdomen: normal bowel sounds, non-tender, soft Extremities: normal range of motion Skin: normal color, warm/dry Neuro/Psych: no motor/sensory deficits, alert, normal mood/affect, oriented x 3
[2017-06-03 09:06] VITALS: BP 130/91; PULSE 85; TEMP 96.7
--- NOTE | 2017-06-03 09:10 | OBGCSDC ---
General Delivery Information - General Info : 3 Para: 1 Abortions: 2 Type: Vaginal L&D Analgesia/Anesthesia Type: Local Admission Date: 05/27/17 Labs: Patient ABO/Rh A POSITIVE 06/01/17 05:55 Hct 26.7 % (38.0-47.0) L 06/02/17 05:45 - Hospital Course Antepartum: BMZ2 given 10am yesterday (that dose was given 12 hrs following first dose due to concern for progression of labor) Intrapartum: Had run of ctx's around 0300 this AM that were not particularly painful, they have since resolved. No bleeding at all. Feeling well otherwise. 05/30/17 09:42 Pt doing fine - felt increase in ctxns this am, but have settled down. GFM. BOWI. Feels backed up - wants to use something for BM 05/31/17 17:10 Saw pt shortly after Pit was started this AM - not really feeling much for ctx' s yet. Doing well. Just ate some breakfast. 06/01/17 09:19 Patient doing well. Had long discussion with patient and about Induction and recommendation for AROM. All questions answered and agreed to ARom 06/01/17 11:18 Patient feeling pressure 06/01/17 12:13 Feeling pressure 06/01/17 14:39 Patient agreed to ARom this morning. after 1-2 hours started to feel pressure and progressed to complete [id number]. Patient pushed for 40 minutes and had : 06/01/17 16:13 Called to room to evaluate for post hemorrhage. Patient feeling weak like wanting to pass out. 06/01/17 16:15 Patient given 75 mcg of fentanyl, total of 980 mL of clot with placental fragments removed manually (Placenta appeared intact after spontaneous delivery earlier) 1,000mg cytotec given per rectum. Ancef ordered and Iron will repeat labs in am. [facility] labs ordered now. Patient had another episode of bleeding at 1800 and had a D&C with Dr. Navarro 06/02/17 08:32 Patient still feels weak but better. Breast feeding and tolerating PO patient voiding. No nausea or vomiting min pain and not much bleeding 06/03/17 09:07 Vaginal - Delivery Provider Delivery Physician/CNM: Aminta Dunaway - Diagnosis Labor: Induced Rupture of Membranes Type: Artificial Amniotic Fluid Color: Bloody Laceration: 2nd Degree Repair: 2-0 Delivery Events: None - Procedures Non-surgical Procedures: Amniotomy - Delivery Non-surgical Procedures: Amniotomy EBL: 500 [place] Data ROMY: 06/21/17 Gestational Age: 37 week(s) and 3 day(s) [place] Delivery Date: 06/01/17 Delivery Time: 14:15 Sex of Infant: Female Score (1 Min): 8 Score (5 Min): 10 Discharge Information - Discharge Information Prescriptions: Hydrocodone/APAP 5/325 [Adams 5/325 (*)] 1 - 2 tab PO Q4HRS PRN #30 tab PRN Reason: Pain, Moderate Ibuprofen [Motrin (*)] 600 mg PO Q6HRS PRN #30 tab PRN Reason: post , inflammation Docusate Sodium [Colace 100 MG (*)] 100 mg PO BID PRN #20 cap PRN Reason: Constipation Ferrous Sulfate [Ferrous Sulf 325 MG (*)] 325 mg PO TIDMEAL #30 tab Condition: Good Instruction/Follow Up: Four Weeks, Six Weeks (4 weeks well woman exam and 6 weeks pp)
[2017-06-03] MEDS: clonazePAM 0.5 MG TAB PO SCH (09:30)
[2017-06-03] MEDS: FERROUS SULFATE 325 MG TAB PO SCH ×2 (11:29→14:05)
[2017-06-03] MEDS: SENNOSIDES/DOCUSATE SODIUM TAB PO SCH (11:45)
== END 2017-06-03 14:07 | disposition home or self-care (01) | DRG 767 ==
LOC: FLD 20:02 → FOB 06-01 23:05
PROVIDERS: ADMIT Obstetrics & Gynecology; ATTEND Obstetrics & Gynecology
PROC: 10907ZC Drainage of Amniotic Fluid, Therapeutic from Products of Conception, Via Natural or Artificial Opening (ICD-10-PCS; 2017-05-31)
PROC: 3E033VJ Introduction of Other Hormone into Peripheral Vein, Percutaneous Approach (ICD-10-PCS; 2017-05-31)
PROC: 10E0XZZ Delivery of Products of Conception, External Approach (ICD-10-PCS; principal; 2017-06-01)
PROC: 10D17ZZ Extraction of Products of Conception, Retained, Via Natural or Artificial Opening (ICD-10-PCS; 2017-06-01)
PROC: 0KQM0ZZ Repair Perineum Muscle, Open Approach (ICD-10-PCS; 2017-06-01)
PROC: 30233N1 Transfusion of Nonautologous Red Blood Cells into Peripheral Vein, Percutaneous Approach (ICD-10-PCS; 2017-06-01)
DX: O45.93 Premature separation of placenta, unspecified, third trimester (principal); O72.2 Delayed and secondary postpartum hemorrhage; O14.04 Mild to moderate pre-eclampsia, complicating childbirth; O26.893 Other specified pregnancy related conditions, third trimester; O99.284 Endocrine, nutritional and metabolic diseases complicating childbirth; O70.1 Second degree perineal laceration during delivery; O09.813 Supervision of pregnancy resulting from assisted reproductive technology, third trimester; E06.3 Autoimmune thyroiditis; M43.6 Torticollis; E79.0 Hyperuricemia without signs of inflammatory arthritis and tophaceous disease; Z14.8 Genetic carrier of other disease; Z3A.37 37 weeks gestation of pregnancy; Z37.0 Single live birth
CPT/HCPCS: 82947-QW; J0690; J0702; J2210; J2370; J2590; J3010; J3105; P9016; P9041